=== PATIENT | female | born 1950 | race Caucasian/White ===

== ENCOUNTER 2023-03-16 08:49 | Day surgery (SDC) | payer MEDICARE, SELFPAY ==
[2023-03-06 09:49] VITALS: BMI 30.9
[2023-03-07 12:09] VITALS: BMI 30.7
[2023-03-16 10:05] VITALS: BP 144/96; PULSE 76; RESP 18; TEMP 36.8; O2SAT 98
[2023-03-16] MEDS: LACTATED RINGERS 1,000 ML 150 ML IV CONT (10:27)
--- NOTE | 2023-03-16 10:45 | WPDANESEPPF ---
Anes - Initial Pre Proc Eval Procedure: Operation Date: 03/16/23 11:30 Proposed Procedures p Esophagogastroduodenoscopy - Fox Go MD Date/Time: 03/16/23 10:45 Surgeon: Fox Go MD Pre Op Diagnosis: Gerd Patient Data Age: 72 Gender: F Height: 1.7 m Weight: 89.7 kg Last Vital Signs Temp 36.8 C 03/16/23 10:05 Pulse 76 03/16/23 10:05 Resp 18 03/16/23 10:05 BP 144/96 H 03/16/23 10:05 Pulse Ox 98 03/16/23 10:05 O2 Del Method Room Air 03/16/23 10:05 Allergies Allergy/AdvReac Type Severity Reaction Status Date / Time No Known Allergies Allergy Verified 03/16/23 10:22 Home Medications Medication Instructions Recorded Confirmed Type allopurinol 100 mg tablet 100 mg PO DAILY 03/07/23 03/16/23 History chlorthalidone 25 mg tablet 25 mg PO DAILY 03/07/23 03/16/23 History losartan 100 mg tablet 100 mg PO DAILY 03/07/23 03/16/23 History pantoprazole 20 mg tablet,delayed 20 mg PO DAILY 03/07/23 03/16/23 History release phentermine 30 mg capsule 30 mg PO DAILY 03/07/23 03/16/23 History rosuvastatin 5 mg tablet 5 mg PO DAILY 03/07/23 03/16/23 History Patient hx anesthesia problems: none Family hx anesthesia problems: none Results Review: All pre-operative results and documents have been reviewed as part of the pre-operative evaluation. [facility] Social History Social History Smoking status: Never smoker Alcohol intake: never Substance use: never Substance use type: does not use Living arrangements: with family Spiritual care concerns: No Anes - Eval Final PreProcedure Day of Procedure 03/16/23 10:45 Patient weight: obese Heart: regular rate and rhythm Lungs: clear to auscultation Airway: Mallampati scale class II Neurological: alert and oriented Last oral intake: >/= 8 hours ASA classification: III Emergent: no Anesthetic plan: proceed Anesthesia type and monitoring: general GIVS and standard monitoring Results Review: All pre-operative results and documents have been reviewed as part of the pre-operative evaluation. Informed Consent: The patient's anesthetic plan and its attendant risks and benefits were discussed with the patient/family/POA. Questions were solicited and answers provided to the satisfaction of the patient/family/POA.
--- NOTE | 2023-03-16 11:04 | PM.HPGS ---
History of Present Illness History of Present Illness Consent: Risks, benefits, and alternatives have been discussed and questions answered. Patient agrees to proceed with procedure. Chief complaint: Gerd Narrative: Isabella Parsons is a 72 year old female with longstanding gerd controlled as long as she is taking protonix, had EGD about 10 years ago and was told that had esophageal irritation Review of Systems Constitutional: Constitutional: Denies headache(s) and Denies weakness Eyes: Eyes: Denies blurry vision ENT: Reports Normal hearing present, Denies headache(s) and Denies neck pain Cardiovascular: Cardiovascular: Denies chest pain and Denies dyspnea Respiratory: Respiratory: Denies dyspnea Gastrointestinal: Gastrointestinal: Reports no additional gastrointestinal complaints Genitourinary: Genitourinary: Denies dysuria Musculoskeletal: Musculoskeletal: Denies neck pain Integumentary/Breasts: Skin/Breast: Denies dry skin Neurologic: Reports Normal hearing present, Denies headache(s) and Denies weakness Psychiatric: Psychiatric: Denies anxiety Endocrine: Endocrine: Denies change in body appearance Hematologic/Lymphatic: Hematologic/Lymphatic: Denies easy bleeding Allergic/Immunologic: Allergic/Immunologic: Denies urticaria PMF Past Medical History Medical History (Updated 03/16/23 @ 11:05 by Fox Go MD) GERD (gastroesophageal reflux disease) Social History Social History Smoking status: Never smoker Alcohol intake: never Substance use: never Substance use type: does not use Living arrangements: with family Spiritual care concerns: No Meds Home Medications and Allergies Home Medications Medication Instructions Recorded Confirmed Type allopurinol 100 mg tablet 100 mg PO DAILY 03/07/23 03/16/23 History chlorthalidone 25 mg tablet 25 mg PO DAILY 03/07/23 03/16/23 History losartan 100 mg tablet 100 mg PO DAILY 03/07/23 03/16/23 History pantoprazole 20 mg tablet,delayed 20 mg PO DAILY 03/07/23 03/16/23 History release phentermine 30 mg capsule 30 mg PO DAILY 03/07/23 03/16/23 History rosuvastatin 5 mg tablet 5 mg PO DAILY 03/07/23 03/16/23 History Allergies Allergy/AdvReac Type Severity Reaction Status Date / Time No Known Allergies Allergy Verified 03/16/23 10:22 Vital Signs Vital Signs - 24 hr 03/16/23 10:05 Temperature 98.3 F Pulse Rate 76 Respiratory Rate 18 Blood Pressure 144/96 H Pulse Oximetry 98 Oxygen Delivery Room Air Exam Const: General: comfortable and no acute distress HENMT: Face/Nose/Sinus: Normal nares present Eyes: General: appearance normal, both eyes and all related structures Neck: Neck: no JVD Resp: Auscultation: clear to auscultation bilaterally Cardio: Rate: regular rate Rhythm: regular rhythm GI: Inspection: non-distended GI Palp: Yes Soft to palpation Skin: General skin exam: normal color Neuro: General: gait normal Speech: normal speech Extrem: General: normal to inspection Psych: Mental Status: mental status grossly normal Assessment and Plan Assessment and plan (1) GERD (gastroesophageal reflux disease): Code(s): K21.9 - Gastro-esophageal reflux disease without esophagitis Status: Acute Assessment and Plan: egd with bx already on ppi
[2023-03-16 11:22] VITALS: BP 129/69; PULSE 70; RESP 16; O2SAT 97
--- NOTE | 2023-03-16 11:29 | WPDANESPN ---
Anes - Prog Note Post-Op Date/Time: 03/16/23 11:29 Cardiovascular status: normal Respiratory status: normal Airway patency: baseline Mental status: baseline Post-Op hydration status: normal Vital Signs: Last Vital Signs Temp 36.8 C 03/16/23 10:05 Pulse 70 03/16/23 11:22 Resp 16 03/16/23 11:22 BP 129/69 03/16/23 11:22 Pulse Ox 97 03/16/23 11:22 O2 Del Method Room Air 03/16/23 11:22 Pain Score (VAS): 0 I/O: Intake & Output 03/15/23 03/16/23 03/16/23 23:59 07:59 15:59 Intake Total 100 Balance 100 Patient Feedback: Patient satisfied with anesthetic care.
[2023-03-16 11:32] VITALS: BP 134/77; PULSE 70; RESP 16; O2SAT 99
[2023-03-16 11:42] VITALS: BP 138/81; PULSE 65; RESP 15; O2SAT 100
== END 2023-03-16 11:50 | disposition home or self-care (01) ==
PROVIDERS: PCP Family Medicine; Visit Provider Internal Medicine Gastroenterology
PROC: 0DJ08ZZ Inspection of Upper Intestinal Tract, Via Natural or Artificial Opening Endoscopic (ICD-10-PCS; CPT 43235; principal; 2023-03-16 11:30)
DX: K21.9 Gastro-esophageal reflux disease without esophagitis (principal); K29.70 Gastritis, unspecified, without bleeding; K44.9 Diaphragmatic hernia without obstruction or gangrene
CPT/HCPCS: 43239

== ENCOUNTER 2023-03-16 09:00 | Outpatient (NON) | payer MEDICARE, SELFPAY | END 2023-03-16 09:01 | disposition home or self-care (01) | PROVIDERS: PCP Family Medicine; Visit Provider Internal Medicine Gastroenterology | DX: K21.9 Gastro-esophageal reflux disease without esophagitis (principal) | CPT/HCPCS: 88305 ==

== ENCOUNTER 2024-03-31 16:11 | Emergency (ER) | payer MEDICARE, SELFPAY ==
[2024-03-31 16:32] VITALS: BP 125/75; PULSE 76; RESP 16; TEMP 36.2; O2SAT 100
[2024-03-31 16:35] VITALS: BP 125/75; PULSE 76; RESP 16; TEMP 36.2; O2SAT 100
--- NOTE | 2024-03-31 16:49 | ED.WOUNDLAC ---
HPI - Wound/Laceration General Chief Complaint: Extremity Injury, Upper Stated Complaint: Right Index Finger Injury Time Seen by Provider: 03/31/24 16:50 Source: patient, RN notes reviewed and old records reviewed Mode of arrival: ambulatory Limitations: no limitations History of Present Illness HPI narrative: 73-year-old female presents to the [facility] with a laceration to the right index finger Laceration at the PIP joint index finger right hand. Patient states occurred between 7 8 this morning Patient does report she is up-to-date with her tetanus shot probably 2 years ago. States that she will double check with her primary care provider tomorrow. Treatments prior to arrival: bandage Related Data Home Medications Medication Instructions Recorded Confirmed allopurinol 100 mg tablet 100 mg PO DAILY 03/07/23 03/31/24 chlorthalidone 25 mg tablet 25 mg PO DAILY 03/07/23 03/31/24 losartan 100 mg tablet 100 mg PO DAILY 03/07/23 03/31/24 pantoprazole 20 mg tablet,delayed 20 mg PO DAILY 03/07/23 03/31/24 release rosuvastatin 5 mg tablet 5 mg PO DAILY 03/07/23 03/31/24 spironolactone 50 mg tablet 50 mg PO DAILY 03/31/24 03/31/24 Allergies Allergy/AdvReac Type Severity Reaction Status Date / Time No Known Allergies Allergy Verified 03/31/24 16:39 Review of Systems Review of Systems: All systems reviewed & are unremarkable except as noted in HPI and below Constitutional: Constitutional: Reports no additional constitutional complaints ENT: Reports system reviewed and no additional complaints, except as documented Cardiovascular: Cardiovascular: Reports no additional cardiovascular complaints, Denies chest pain and Denies dyspnea Respiratory: Respiratory: Reports no additional respiratory complaints, Denies chest congestion, Denies cough and Denies dyspnea Gastrointestinal: Gastrointestinal: Reports no additional gastrointestinal complaints, Denies abdominal pain, Denies nausea and Denies vomiting Musculoskeletal: Musculoskeletal: Reports no additional musculoskeletal complaints Integumentary/Breasts: Skin/Breast: Reports as per HPI [facility] Past Medical History Medical History GERD (gastroesophageal reflux disease) Social History Social History Smoking status: Never smoker Alcohol intake: never Substance use: never Substance use type: does not use Living arrangements: with family Spiritual care concerns: No Comments At the time of my signature, I reviewed and agree with the nursing past medical, surgical, social, and family history. There is no relevant family history pertinent to the patient complaint. Exam Const: General: cooperative, healthy appearing, comfortable, no acute distress, well developed, alert and well nourished Nutritional Appearance: well nourished Orientation/consciousness: patient oriented x3 Limitations: no limitations HENMT: Head: normal to inspection Ears: hearing grossly normal bilaterally and external ears normal Face/Nose/Sinus: Normal external nose present, normal facial exam and face symmetric Face and sinus: normal facial exam and face symmetric Eyes: General: appearance normal, both eyes and all related structures Alignment and Position: alignment normal Periorbital: periorbital findings normal Neck: Neck: normal visual inspection, full ROM, no lymphadenopathy and no meningeal signs Chest: Chest palpation & inspection: normal inspection of the chest Resp: Effort & Inspection: normal respiratory effort and able to speak in complete sentences Auscultation: clear to auscultation bilaterally, no crackles, no rales, no rhonchi and no wheezes Cardio: Rate: regular rate Skin: General skin exam: normal color and no rashes or lesions noted Lesions: no lesions Rashes: no rashes Other: 2 cm wound to the dorsal 2nd finger right hand. Bleedings controlled. Has
[2024-03-31] MEDS: LIDOCAINE HCL 1% LOCAL INJ 2 ML AMPUL 4 ML INFILTRATE (17:13)
[2024-03-31] MEDS: WATER FOR IRRIGATION, STERILE 1,000 ML BOTTLE 250 ML IRRIGATION (17:13)
== END 2024-03-31 17:50 | disposition home or self-care (01) ==
PROVIDERS: Emergency Provider Nurse Practitioner; PCP Family Medicine
DX: S61.210A Laceration without foreign body of right index finger without damage to nail, initial encounter (principal); X58.XXXA Exposure to other specified factors, initial encounter; K21.9 Gastro-esophageal reflux disease without esophagitis
CPT/HCPCS: 12001; 99212; G0463; J2003

== ENCOUNTER 2024-10-31 13:57 | Outpatient (CLI) | payer MEDICARE, SELFPAY ==
--- NOTE | ~2024-10-31 | MM_ITS ---
EXAMINATION: MM screening robin BI w robe HISTORY: Screening TECHNIQUE: Craniocaudal and mediolateral oblique 3-D tomosynthesis images were obtained and synthetic 2-D images were generated. CAD analysis was submitted and interpreted. COMPARISON: Comparison to multiple prior studies sequentially, with oldest reviewed study dated 11/27. BREAST PARENCHYMAL COMPOSITION: Dense: The breasts are heterogeneously dense, which may obscure small masses FINDINGS: There is no evidence of suspicious mass, calcification, or architectural distortion to sugg est malignancy in either breast. There has been no suspicious interval change. IMPRESSION: 1. No mammographic evidence of malignancy. 2. Recommend routine screening mammography in one year. BI-RADS Category 1: Negative Reviewed, dictated and finalized at location B.
--- OUTSIDE RECORDS SUMMARY | 2024-10-31 14:00 | XMS_ITS | CONTINUITY OF CARE DOCUMENT ---
Author Name senia conn Address Unknown Organization [facility] Address [address] [place] [address] [address] [place] [address] Phone [phone] Care Team Providers Care Cathead Operator Name Role Phone Ezra Mckeon MD Unavailable [phone] DARIUS TAPIA MD Unavailable DARIUS TAPIA MD Unavailable PROBLEMS Condition Status Date Provider Notes Cardiology examination active Ezra Mckeon MD HTN essential active Ezra Mckeon MD Hyperlipidemia active Ezra Mckeon MD Bradycardia active Ezra Mckeon MD Abnormal routine stress active Ezra Mckeon MD ENCOUNTERS Date Type Provider Location Encounter Diag nosis 2 - 2 In-person encounter Office Visit Ezra Mckeon MD [facility] 8 - 8 In-person encounter Office Visit Ezra Mckeon MD [facility] 5 - 5 In-person encounter Office Visit Ezra Mckeon MD [facility] Abnormal routine stress 8 - 8 In-person encounter Office Visit Ezra Mckeon MD [facility] Cardiology examinationHTN essentialHyperlipidemiaBradycardia VITAL SIGNS Date Observation Value Provider Body Mass Index (Ratio) 26.78 kg/m2 Skyla Mckeon MD blood pressure, cuff size regular Ke rri Gruenenfelder blood pressure, diastolic 100 mm[Hg] Ke rri Gruenenfelder blood pressure, systolic 176 mm[Hg] Jarad Ruffinelder oxygen saturation, oximetry 98 % Peri Ruffinelder respiratory rate E&M 12 /min Peri mayeselder pulse rate 87 /min Peri Olson er weight E&M 171 [lb_av] Peri Olson height E&M 67 [in_i] Peri Wesley Body Mass Index (Ratio) 30.85 kg/m2 Skyla Mckeon MD blood pressure, cuff size regular Ja rret blood pressure, diastolic 84 mm[Hg] Ja rret blood pressure, systolic 161 mm[Hg] Lashawn ret pulse rate 68 /min Reese oxygen saturation, oximetry 98 % Reese respiratory rate E&M 14 /min Reese weight E&M 197 [lb_av] Reese y height E&M 67 [in_i] Reese y Body Mass Index (Ratio) 31.63 kg/m2 Skyla Mckeon MD blood pressure, cuff size regular Ja rr blood pressure, diastolic 90 mm[Hg] Ja rret blood pressure, systolic 178 mm[Hg] Jar ret pulse rate 68 /min Reese y respiratory rate E&M 12 /min Reese oxygen saturation, oximetry 98 % Reese weight E&M 202 [lb_av] Reese Tolbert y height E&M 67 [in_i] Reese Tolbert y weight E&M 240 [lb_av] Mag waller Body Mass Index (Ratio) 31.95 kg/m2 Skyla Mckeon MD respiratory rate E&M 17 /min Ольга richards blood pressure, diastolic 92 mm[Hg] Ana M Bhakta blood pressure, systolic 168 mm[Hg] Any lolita Bhakta pulse rate 53 /min Ольга Bhakta blood pressure, cuff size large An mirna Bhakta oxygen saturation, oximetry 98 % Ольга Bhakta weight E&M 204 [lb_av] Ольга Bhakta height E&M 67 [in_i] Ольга Bhakta ALLERGIES No Known Drug Allergies RESULTS Date Observation Value Provider Reference Range Interpretation Location 2 lipoprotein, beta, serum, point, quantitative, calculated 61 mg/dL [facility] 0-99 2 HDL cholesterol, serum 59 mg/dL [facility] >39 2 triglyceride, serum, random 72 mg/dL [facility] 0-149 2 cholesterol, serum 134 mg/dL [facility] 437-200 6020/04/0 2 alanine aminotransferase (SGPT), serum 19 1/L [facility] 0-32 2 aspartate aminotransferase (SGOT), serum 19 1/L [facility] 0-40 2 alkaline phosphatase, serum 85 1/L [facility] 44-121 2 bilirubin, serum, total 0.4 mg/dL [facility] 0.0-1.2 2 albumin/globulin ratio, serum 1.7 [facility] 1.2-2.2 2 globulin, serum 2.6 [facility] 1.5-4.5 2 albumin, serum 4.5 g/dL [facility] 3.8-4.8 2 protein, total, serum 7.1 g/dL [facility] 6.0-8.5 2 calcium, serum 9.6 mg/dL [facility] 8.7-10.3 2 carbon dioxide, venous blood 25 mmol/L [facility] 20-29 2 chloride, serum 100 mmol/L [facility] 96-106 2 potassium, serum 3.8 mmol/L [facility] 3.5-5.2 2 sodium, serum 139 mmol/L [facility] 288-399 9612/04/0 2 urea nitrogen/creatinine ratio, serum 14 [facility] 12-28 2 creatinine, serum 1.17 mg/dL [facility] 0.57-1.00 High 2 urea nitrogen, blood 16 mg/dL [facility] 8-27 2 blood glucose, random 120 mg/dL [facility] 70-99 High HISTORY OF MEDICATION USE Medication Status Instructions Dates Provider Indications Com ments losartan 100 mg tablet active TAKE 1 TABLET BY MOUTH ONCE A DAY 7 Lissett Coto amlodipine 5 mg tablet active TAKE 1 TABLET BY MOUTH EVERY DAY 8 Ezra Mckeon MD chlorthalidone 25 mg tablet active TAKE 1 TABLET BY MOUTH ONCE A DAY 5 Lissett Coto losartan 100 mg tablet completed Take 1 tablet once a day 5 - 7 Nereida Parham metoprolol tartrate 25 mg tablet completed - 8 Ezra Mckeon MD rosuvastatin 5 mg tablet active Ezra Mckeon MD losartan-hydrochlo rothiazide 50-12.5 mg tablet completed - 5 Ezra Mckeon MD pantoprazole 20 mg tablet,delayed release (DR/EC) active Ezra Mckeon MD allopurinol 100 mg tablet active Ezra Mckeon MD SOCIAL HISTORY Date Observation Value Provider drug use no Ezra Mckeon MD alcohol use no Ezra Mckeon MD smoking status Never smoker Ezra Mckeon MD drug use no Ezra Mckeon MD alcohol use no Ezra Mckeon MD smoking status Never smoker Ezra Mckeon MD smoking status Never smoker Ezra Mckeon MD social history E&M S moking History: Aguilar ladd has never smoked. Ezra Mckeon MD social history reviewed E&M reviewed - no changes required Ezra Mckeon MD drug use no Ezra Mckeon MD alcohol use no Ezra Mckeon MD social history reviewed E&M reviewed - no changes required Ezra Mckeon MD social history E&M S moking History: Aguilar ladd has never smoked. Ezra Mckeon MD smoking status Never smoker Ольга Bhakta INSURANCE PROVIDERS Payer name Policy type / Coverage type Mchenry red green party ID AARP MEDICARE ADVANTAGE HMO-POS HMO [id number] ADVANCE DIRECTIVES Name Date DISCUSSED - NO DECISION MADE TREATMENT PLAN Date Name Performer [id number],B,Off the lopre ssor Ezra Mckeon MD [id number],C,W ill increase losartan and add Chlorthalidone 25mg once a day Ezra Mckeon MD [id number],C,H er BP has been high since we last saw her. Her HR has gone up since we stopped the lopressor. SHe had a stress test that showed normal HR and had ST depression consistent with ischemia. SHe has had this exact issue before on a stress test and underwent a cath. No sig. CAD. Ezra Mckeon MD [id number],C,on statin Leland Mckeon MD [id number],C,Will check a 48 hr holter Ezra Mckeon MD [id number],C,W ill have her stop BB B P today: 168/92 Her updated medication list for this problem includes: Losartan-hydrochlorothiazide 50-12.5 Mg Tablet (Losartan-hydrochlorothiazide) Ezra Mckeon MD Cardiology Ezra Mckeno MD Cardiology:stable, no limitation s Ezra Mckeon MD Cardiology:This visi t has been a part of the consistent, comprehensive, and ongoing management of the chronic medical condition(s) listed above for the patient. T he patient is on a statin for pimary prevention and management of cardiovascular disease. H er updated medication list for this problem includes: Rosuvastatin 5 Mg Tablet (Rosuvastatin) Ezra Mckeon MD Cardiology:Likely wh ite coat htn S tates her BP is well controlled at home H er updated medication list for this problem includes: Amlodipine 5 Mg Tablet (Amlodipine) ..... Take 1 tablet by mouth every day Chlorthalidone 25 Mg Tablet (Chlorthalidone) ..... Take 1 tablet by mouth once a day Losartan 100 Mg Tablet (Losartan) ..... Take 1 tablet once a day BP today: 176/100 P rior BP: 161/84 (08/18/2023) Labs Reviewed: C reat: 1.17 (09/12/2023) C hol: 134 (09/12/2023) HDL: 59 (09/12/2023) LDL: 61 (09/12/2023) T (09/12/2023) Ezra Mckeon MD Cardiology Ezra Mckeon MD Cardiology Ezra Mckeon MD Cardiology:check Lip id Panel H er updated medication list for this problem includes: Rosuvastatin 5 Mg Tablet (Rosuvastatin) Ezra Mckeon MD Cardiology:Add amlod ipine 5mg once daily as her BP runs high at home BP today: 161/84 P rior BP: 178/90 (02/24/2023) Her updated medication list for this problem includes: Amlodipine 5 Mg Tablet (Amlodipine) ..... Take 1 tablet by mouth every day Chlorthalidone 25 Mg Tablet (Chlorthalidone) ..... Take 1 tablet by mouth once a day Losartan 100 Mg Tablet (Losartan) ..... Take 1 tablet once a day Ezra Mckeon MD Cardiology:Off the lopressor Leland Mckeon MD Cardiology:Will incr ease losartan and add Chlorthalidone 25mg once a day Ezra Mckeon MD Cardiology:Her BP alvarez s been high since we last saw her. Her HR has gone up since we stopped the lopressor. SHe had a stress test that showed normal HR and had ST depression consistent with ischemia. SHe has had this exact issue before on a stress test and underwent a cath. No sig. CAD. Ezra Mckeon MD Cardiology:on statin Ezra corbett MD Cardiology:Will check a 48 hr ho lter Ezra Mckeon MD Cardiology:Will have her stop BB B P today: 168/92 Her updated medication list for this problem includes: Losartan-hydrochlorothiazide 50-12.5 Mg Tablet (Losartan-hydrochlorothiazide) Ezra Mckeon MD Date Name COMPREHENSIVE METABO LIC PANEL, W/EGFR LIPID PANEL BASIC METABOLIC PANE L W/EGFR Complete Echo Stress Routine Holter Monitor 48 hr HISTORY OF PROCEDURES Procedure Date Procedure Name Provider Procedure Notes S tatus Complex e/m visit add on Ezra Mckeon MD completed EKG Ezra Mckeon MD completed
--- OUTSIDE RECORDS SUMMARY | 2024-10-31 14:00 | XMS_ITS | Referral Summary ---
Author Organization [facility] Address [address] [place] [address] Care Team Providers Care Shank Faker Name Role Phone Mike Valdez MD Primary Care Provider [phone] Allergies No known active allergies Medications magnesium oxide (MAG-OX) 400 mg (241.3 mg elemental magnesium) tabletIndication s:hypomagnesemia Take 400 mg by mouth daily Active famotidine (PEPCID) 20 mg tablet Take 20 mg by mouth daily Active rosuvastatin (CRESTOR) 5 mg tablet Take 2.5 mg by mouth daily Active aspirin 81 mg enteric coated tablet Take 81 mg by mouth daily Active metoprolol XL (TOPROL-XL) 25 mg extended release tablet Take 25 mg by mouth daily Active losartan-hydroCH LOROthiazide (HYZAAR) 50-12.5 mg per tablet Take 1 tablet by mouth daily Active pantoprazole DR (PROTONIX) 40 mg EC tablet Take 40 mg by mouth daily Active Active Problems Problem Noted Date Diagnosed Date Nonsustained ventricular tachycardia 07/31/2019 Diastolic dysfunction 07/31/2019 Essential hypertension 07/31/2019 Palpitations 07/31/2019 Social History Tobacco Use Types Packs/Day Years Used Date Smoking Tobacco: Never Smokeless Tobacco: Never Alcohol Use Standard Drinks/Week Comments Not Currently 0 (1 standard drink = 0.6 oz pur e alcohol) Personal Safety Answer Date Recorded Getting School Help Needed Not on file 08/12 Comments Unknown Sex and Gender Information Value Date Recorded Sex Assigned at Not on file 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 Gender Identity Not on file Sexual Orientation Not on file Last Filed Vital Signs Vital Sign Reading Time Taken Comments Blood Pressure 134/82 12/10/2020 11:14 AM CDT Pulse 62 12/10/2020 11:14 AM CDT Temperature 36.6 C (97.8 F) 09/22/2017 6:06 AM CDT Respiratory Rate - - Oxygen Saturation 98% 12/10/2020 11:14 AM CDT Inhaled Oxygen Concentration - - Weight 86.6 kg (191 lb) 12/10/2020 11:14 AM CDT Height 170.2 cm (5' 7 ) 12/10/2020 11:14 AM CDT Body Mass Index 29.91 12/10/2020 11:14 AM CDT Plan of Treatment Not on file Insurance MEDICARE [employer] SENIOR [facility] MEDICARE AET[employer] SENIOR SUPPLEMENT Advance Directives For more information, please contact: [phone] Documents on File Type Date Recorded Patient Stakes Player Expl anation ADVANCE DIRECTIVE 11/29/2017 12:00 AM MARIA LUZ Kinney OF [employer] MACHINE OPERATOR FINANCIAL/MEDICAL Care Teams Shank Faker Relationship Specialty Start Date End Date Mike Valdez MD [address] [place] [address] PCP - General 08/06/20
--- OUTSIDE RECORDS SUMMARY | 2024-10-31 14:00 | XMS_ITS | Clinical Summary ---
Author Organization [facility] Address [address] [place] [address] Care Team Providers Care Electronic Equipment Repairer Name Role Phone Mike Valdez MD Primary Care Provider Allergies No known active allergies Medications magnesium [...] dysfunction 07/31/2019 Essential hypertension 07/31/2019 Palpitations 07/31/2019 Medical History Medical History Date Comments Coronary artery disease Hypertension Family History Medical History Relation Name Comments No Known Problems Brother Stent Father Heart disease Mother No Known Problems Sister Relation Name Status Comments Brother Alive Father Mother Sister Alive Social History Tobacco Use Types Packs/Day Years [...] on file 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 Gender Identity Not on file Sexual Orientation Not on file Obstetrics History Last Filed Vital Signs Vital Sign Reading [...] of Treatment Not on file Insurance MEDICARE [facility] SENIOR SUPPLEMENT MEDICARE [employer] SENIOR SUPPLEMENT Advance Directives For more information, please contact: [phone] Documents on File Type Date Recorded Patient Comb Machine Operator Expl anation ADVANCE DIRECTIVE 11/29/2017 12:00 AM MARIA LUZ R OF NURSE STAFF [facility] FINANCIAL/MEDICAL Care Teams Electronic Equipment Repairer Relationship Specialty Start Date End Date Mike Valdez MD [address] [facility] [place] [address] PCP - General 08/06/20
--- OUTSIDE RECORDS SUMMARY | 2024-10-31 14:00 | XMS_ITS | Data Portability ---
Author Organization [place] [employer], Main Office Address [address] [place] [address] Care Team Providers Care Apprenticeship Training Representative Name Role Phone MIKE VALDEZ Primary Care Provider Assessment Encounter Date Assessment Date Assessment LastModified by Organization Details LastModified Time 04/08/2024 04/08/2024 D/w pt about her findings and further options for her. Pt wants to wait for few more days to get her stitches out (as the center part is still not completely healed yet). Routine wound care explained in detail. F/u as directed. [email or web address] Not available 04/08/2024 14:49:41 04/17/2024 04/17/2024 D/w pt about her findings and further options for her. Verbal consent taken. Pt did well with it, no problems. Routine wound care explained in detail. F/u as directed. [email or web address] Not available 04/17/2024 14:33:45 05/28/2024 05/28/2024 74 yo F with - WT LOSS PROGRAM - MICROSCOPIC HEMATURIA, resolved - CKD III, new - HLD - HTN - GERD - GOUT - LUMBAR DISC PROLAPSE - CHRONIC NECK & LOW BACK PAIN - DDD C & L SPINE - CERVICAL & LUMBAR SPONDYLOSIS - POLYARTHROPATHY - OSTEOPENIA - OVERWEIGHT - H/O OBESITY I - H/O ELEVATED LFTs - H/O HYPOMAGNESEMIA - H/O B/L CATARACT - H/O MICROSCOPIC HEMATURIA Annual labs: 02/26/24. Annual labs: 01/11/23. MRI L-spine wo: 11/05/21. X-ray C & L spine: 08/13/21. Annual labs, ANABELL: 08/12/21. Labs by cardio: 08/06/20. Annual labs: 06/19/20. Wt: 197(06/30/20) - 191(07/28/20) - 189(08/25/20) - 188(10/19/20) - 188(12/15/20) [Stop] Wt: 204(08/26/21) - 201(09/27/21) - 197(10/27/21) - 194(12/01/21) - 199(02/28/22) - 197(04/26/22) [Stop] Wt: 198(01/25/23) - 196(02/27/23) - 196(02/27/23) - 190(03/30/23) - 191(08/09/23) - 188(10/19/23) - 184(12/28/23) - 170(02/26/24) - 162(03/27/24) - 162(05/28/24) D/w pt in detail about her conditions, recent labs & imagines and further plan of care. Answered all questions and concerns for the pt. All meds verified with pt. Meds as directed. BP diary education given and call us if any concerns. Diet and exercise explained in detail. Cont f/u with GI as per schedule. Cont f/u with Pain clinic as per schedule. Cont f/u with Ophtho as per schedule. Cont f/u with Cardio at [facility] as per schedule. Pt has done PT in the past. Offered to refer to Nephro; but pt declined. Offered to refer to Spine surgeon; but pt declined. Saxenda, Wegovy, Zepbound were too costly for pt. HM: WWE - 09/02, normal as per pt. Cont f/u with Gyne as per schedule. Mammo - 09/22/23, normal. EGD - 03/16/23, gastritis ++. Cont f/u with GI as per schedule. Colonoscopy - 10 yrs ago, normal as per pt. Cologuard, 10/28/23 - neg. DEXA - 10/27/23, normal. Flu - 03/27/24. Tdap - 06/18/20. Pneumo - 06/30/20. Shingrix - At pharmacy/HD. F/u in 2 months. BMP in 09/03. Annual labs in 03/06. [email or web address] Not available 05/28/2024 09:31:28 07/25/2024 07/25/2024 74 yo F with - WT LOSS PROGRAM - MICROSCOPIC HEMATURIA, resolved - CKD III, new - HLD - HTN - GERD - GOUT - LUMBAR DISC PROLAPSE - CHRONIC NECK & LOW BACK PAIN - DDD C & L SPINE - CERVICAL & LUMBAR SPONDYLOSIS - POLYARTHROPATHY - OSTEOPENIA - OVERWEIGHT - H/O OBESITY I - H/O ELEVATED LFTs - H/O HYPOMAGNESEMIA - H/O B/L CATARACT - H/O MICROSCOPIC HEMATURIA Annual labs: 02/26/24. Annual labs: 01/11/23. MRI L-spine wo: 11/05/21. X-ray C & L spine: 08/13/21. Annual labs, ANABELL: 08/12/21. Labs by cardio: 08/06/20. Annual labs: 06/19/20. Wt: 197(06/30/20) - 191(07/28/20) - 189(08/25/20) - 188(10/19/20) - 188(12/15/20) [Stop] Wt: 204(08/26/21) - 201(09/27/21) - 197(10/27/21) - 194(12/01/21) - 199(02/28/22) - 197(04/26/22) [Stop] Wt: 198(01/25/23) - 196(02/27/23) - 196(02/27/23) - 190(03/30/23) - 191(08/09/23) - 188(10/19/23) - 184(12/28/23) - 170(02/26/24) - 162(03/27/24) - 162(05/28/24) - 165(07/25/24) [Stop] D/w pt in detail about her conditions, recent labs & imagines and further plan of care. Answered all questions and concerns for the pt. All meds verified with pt. Meds as directed. BP diary education given and call us if any concerns. Diet and exercise explained in detail. Cont f/u with GI as per schedule. Cont f/u with Pain clinic as per schedule. Cont f/u with Ophtho as per schedule. Cont f/u with Cardio at [facility] as per schedule. Pt has done PT in the past. Offered to refer to Nephro; but pt declined. Offered to refer to Spine surgeon; but pt declined. Saxenda, Wegovy, Zepbound were too costly for pt. HM: WWE - 09/02, normal as per pt. Cont f/u with Gyne as per schedule. Mammo - 09/22/23, normal. EGD - 03/16/23, gastritis ++. Cont f/u with GI as per schedule. Colonoscopy - 10 yrs ago, normal as per pt. Cologuard, 10/28/23 - neg. DEXA - 10/27/23, normal. Flu - 03/27/24. Tdap - 06/18/20. Pneumo - 06/30/20. Shingrix - At pharmacy/HD. F/u in 2 months. BMP in 09/03. Annual labs in 03/06. Not available 07/25/2024 09:13:22 09/30/2024 09/30/2024 74 yo F with - CKD III, stable - HLD - HTN - GERD - GOUT - LUMBAR DISC PROLAPSE - CHRONIC NECK & LOW BACK PAIN - DDD C & L SPINE - CERVICAL & LUMBAR SPONDYLOSIS - POLYARTHROPATHY - OSTEOPENIA - OVERWEIGHT - H/O OBESITY I - H/O ELEVATED LFTs - H/O HYPOMAGNESEMIA - H/O B/L CATARACT - H/O MICROSCOPIC HEMATURIA Annual labs: 02/26/24. Annual labs: 01/11/23. MRI L-spine wo: 11/05/21. X-ray C & L spine: 08/13/21. Annual labs, ANABELL: 08/12/21. Labs by cardio: 08/06/20. Annual labs: 06/19/20. Wt: 197(06/30/20) - 191(07/28/20) - 189(08/25/20) - 188(10/19/20) - 188(12/15/20) [Stop] Wt: 204(08/26/21) - 201(09/27/21) - 197(10/27/21) - 194(12/01/21) - 199(02/28/22) - 197(04/26/22) [Stop] Wt: 198(01/25/23) - 196(02/27/23) - 196(02/27/23) - 190(03/30/23) - 191(08/09/23) - 188(10/19/23) - 184(12/28/23) - 170(02/26/24) - 162(03/27/24) - 162(05/28/24) - 165(07/25/24) [Stop] D/w pt in detail about her conditions, recent labs & imagines and further plan of care. Answered all questions and concerns for the pt. All meds verified with pt. Meds as directed. BP diary education given and call us if any concerns. Diet and exercise explained in detail. Cont f/u with GI as per schedule. Cont f/u with Pain clinic as per schedule. Cont f/u with Ophtho as per schedule. Cont f/u with Cardio at [facility] as per schedule. Pt has done PT in the past. Offered to refer to Nephro; but pt declined. Offered to refer to Spine surgeon; but pt declined. Saxenda, Wegovy, Zepbound, Farxiga were too costly for pt. HM: WWE - 09/02, normal as per pt. Cont f/u with Gyne as per schedule. Mammo - 09/22/23, normal. Ordered. EGD - 03/16/23, gastritis ++. Cont f/u with GI as per schedule. Colonoscopy - 10 yrs ago, normal as per pt. Cologuard, 10/28/23 - neg. DEXA - 10/27/23, normal. Flu - 03/27/24. Tdap - 06/18/20. Pneumo - 06/30/20. Shingrix - At pharmacy/HD. F/u in 5 months. Annual labs in 03/06. [email or web address] Not available 09/30/2024 09:18:06 Plan of Treatment Reminders Order Date Submit Date Provider Last Modified By Organization Details Last Modified Time Details Appointments Physical/ Annual Wellness 30 2024 08:15A Javier Valdez MD Not available Not available Not available Lab BMP, serum or plasma 2023 025 [email or web address] [facility] (Lab), [address] [place], [address], 09/12/2024 18:03:51 Referral None recorded. Procedures None recorded. Surgeries None recorded. Imaging MAMMO, screening , bilateral 2024 025 [email or web address] [facility], [address] Sh[address]umann, [facility] [address], [place], [address], 10/16/2024 16:41:58 Medication Orders allopurin ol 100 mg tablet 2024 025 [facility] [id number], [place], [address], 09/30/2024 09:13:39 meloxicam 7.5 mg tablet 2024 025 [facility] [address], [place], [address], 09/30/2024 09:13:42 Jardiance 25 mg tablet 2024 025 [facility] [address], [place], [address], 09/30/2024 09:13:39 rosuvasta tin 5 mg tablet 2024 025 [facility] [address], [address], 09/30/2024 09:13:42 spironola ctone 50 mg tablet 2024 025 [facility] [address], [place], [address], 09/30/2024 09:13:39 cyclobenz aprine 10 mg tablet 2024 025 [facility] [address], [place], [address], 09/30/2024 09:13:40 pantopraz ole 20 mg tablet,de layed release 2024 025 [facility] [address] In [facility], [address] [facility], [place], [address], 09/30/2024 09:13:40 allopurin ol 100 mg tablet 2024 025 [facility] [address] In [facility], [address] [facility], [place], [address], 07/25/2024 09:15:53 meloxicam 7.5 mg tablet 2024 025 [facility] [address] In [facility], [address] [facility], [place], [address], 07/25/2024 09:15:55 Farxiga 10 mg tablet 2024 025 [facility] [address] In [facility], [address] [facility], [place], [address], 07/25/2024 09:15:55 rosuvasta tin 5 mg tablet 2024 025 [facility] [address] In [facility], [address] [facility], [place], [address], 07/25/2024 09:15:55 spironola ctone 50 mg tablet 2024 025 [facility] [address] In [facility], [address] [facility], [place], [address], 07/25/2024 09:15:54 cyclobenz aprine 10 mg tablet 2024 025 [facility] [address] In [facility], [address] [facility], [place], [address], 07/25/2024 09:15:54 pantopraz ole 20 mg tablet,de layed release 2024 025 [facility] [address], [address], 07/25/2024 09:15:54 scopolami ne 1 mg over 3 days transderm al patch 2024 025 [facility] [address], [address], 07/25/2024 09:15:55 ondansetr on 4 mg disintegr ating tablet 2024 025 [facility] [address], [address], 07/25/2024 09:15:55 allopurin ol 100 mg tablet 2023 024 [facility] [address], [address], 05/28/2024 09:12:18 meloxicam 7.5 mg tablet 2023 024 [facility] [address], [address], 05/28/2024 09:12:15 Farxiga 10 mg tablet 2023 024 [facility] [address], [address], 05/28/2024 09:12:15 rosuvasta tin 5 mg tablet 2023 024 [facility] [address], [address], 05/28/2024 09:12:16 phentermi ne 37.5 mg tablet 2023 024 [facility] [address] [address] [place], [address], 05/28/2024 09:12:21 spironola ctone 50 mg tablet 2023 024 [facility] [address] In [facility], [address], [place], [address], 05/28/2024 09:12:17 cyclobenz aprine 10 mg tablet 2023 024 [facility] [address] In [facility], [address] , [place], [address], 05/28/2024 09:12:17 pantopraz ole 20 mg tablet,de layed release 2023 024 [facility] [address] In [facility], [address], [place], [address], 05/28/2024 09:12:16 Patient TargetsNo targets recorded. Patient Instructions Encounter Date Encounter Id Patient Instructions Last Modified By Organization Details Last Modified Time 04/08/2024 [id number] cuts closed with stitches: care instructions [email or web address] Not available 04/08/2024 14:48:51 04/17/2024 [id number] cuts closed with stitches: care instructions [email or web address] Not available 04/17/2024 14:28:50 Reason for Referral None Reported. Results Created Date Observation Date Name Description Value Unit Range Abnormal Flag Note LastModifiedBy Organization Detail LastModifiedTime Result Notes None recorded. 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 Active 2021 Not Available [facility] 3 02:33:16 Gouty arthropath y 422987007 Active 2021 Not Available [facility] 3 02:33:16 Hypomagnes emia 540689551 Active 2020 Not Available [facility] 3 02:33:16 Lumbar spondylosi s 048093419 Active 2021 Not Available [facility] 3 02:33:16 Screening mammograph y Active 2021 Not Available [facility] 3 02:33:16 Degenerati on of lumbar interverte bral disc 42573390 Active 2021 Not Available [facility] 3 02:33:16 Gastroesop hageal reflux disease without esophagiti s 493053254 Active 2020 Not Available [facility] 3 02:33:16 Adult health examinatio n Active 2021 Not Available [facility] 3 02:33:16 Chronic low back pain 320769467 Active 2021 Not Available [facility] 3 02:33:16 Osteopenia 980277912 Active 2020 Not Available [facility] 3 02:33:16 Polyarthro bill 13922902 Active 2021 Not Available [facility] 3 02:33:17 Hypertensi ve disorder 21484596 Active 2020 Not Available [facility] 3 02:33:17 Cervical spondylosi s 943017706 Active 2021 Not Available [facility] 3 02:33:17 Hyperlipid emia 52454062 Active 2020 Not Available [facility] 3 02:33:17 Liver enzymes level above reference range 971758295 Active 2020 Not Available [facility] 3 02:33:17 Administra tion of influenza vaccine Active 2021 Not Available [facility] 3 02:33:17 Bilateral cataracts 88650867 Active 2022 Mike Valdez MD [address] [facility], [facility] [address], [place], [address] , [facility] 3 12:18:47 Bradycardi a 00785406 Active 2022 Mike Valdez MD [address], [place], [address] , [facility] 3 11:33:16 Microscopi c hematuria 712844577 Active 2022 Mike Valdez MD [address], [place], [address] , [facility] 3 12:32:46 Gout 41303279 Active 2022 Mike Valdez MD [address], [place], [address] , [facility] 3 11:15:44 Loss of hair 205047523 Active 2023 Mike Valdez MD [address], [place], [address] , [facility] 4 09:24:01 Chronic kidney disease stage 3 538337599 Active 2023 Mike Valdez MD [address], [place], [address] , [facility] 4 09:12:28 Laceration of right index finger 0184353259089 9103 Active 2023 Mike Valdez MD [address], [place], [address] , [facility] 4 14:48:32 Motion sickness 41414818 Active 2024 Mike Valdez MD [address], [place], [address] , [facility] 5 09:12:25 Overweight 629017197 Active 2024 Mike Valdez MD [address], [place], [address] , [facility] 5 09:18:27 Problem Notes None recorded. Procedures Surgical History Date Name Laterality Status Provider Name and Address Organization Details Recorded Time Medicare Wellness CPT Code, subsequent completed September [facility] 10/18/2023 14:44:29 Hernia Surgery completed Not Available [facility] 08/10/2022 02:30:41 Imaging Results None recorded. Procedure Notes None recorded. Medical Equipment None Reported. Allergies No known drug allergies Medications Name Sig Start Date Stop Date Status Note LastModified by Organization Details LastModified Time cyclobenzap rine 10 mg tablet TAKE 1 TABLET BY MOUTH EVERY 12 HOURS NEEDED FOR 30 DAYS 2024 active Not Available Not Available Not Avai lable trazodone 50 mg tablet TAKE 1 TABLET BY MOUTH EVERY DAY active Not Available Not Available No t Available metoprolol succinate ER 50 mg tablet,exte nded release 24 hr TAKE 1 TABLET BY MOUTH EVERY DAY AT NIGHT 10/19 completed Not Available Not Available Not Available valacyclovi r 1 gram tablet Take 1 tablet every 12 hours by oral route for 5 days. active Not Available Not Available No t Available hydrocodone 5 mg-acetamin ophen 325 mg tablet TAKE ONE TABLET BY MOUTH EVERY 4 TO 6 HOURS NEEDED FOR PAIN DO NOT WORK OR DRIVE active Not Available Not Available No t Available flurbiprofe n 0.03 % eye drops INSTILL 1 DROP INTO SURGICAL EYE THREE TIMES PER DAY STARTING AFTER SURGERY, CONTINUE FOR 3 WEEKS 12/24 completed Not Available Not Available Not Available phentermine 15 mg capsule TAKE 1 CAPSULE BY MOUTH EVERY DAY IN THE MORNING 02/27 completed Not Available Not Available Not Available phentermine 37.5 mg tablet TAKE 1 TABLET BY MOUTH EVERY DAY IN THE MORNING active Not Available Not Available No t Available chlorthalid one 25 mg tablet TAKE 1 TABLET BY MOUTH ONCE A DAY active Not Available Not Available No t Available amlodipine 5 mg tablet TAKE 1 TABLET BY MOUTH EVERY DAY active Not Available Not Available No t Available allopurinol 100 mg tablet TAKE 1 TABLET BY MOUTH EVERY DAY DIRECTED 2024 active Not Available Not Available Not Avai lable spironolact one 25 mg tablet TAKE 1 TABLET BY MOUTH EVERY DAY DIRECTED 12/27 completed Not Available Not Available Not Available phentermine 30 mg capsule TAKE 1 CAPSULE BY MOUTH EVERY DAY IN THE MORNING active Not Available Not Available No t Available pantoprazol e 20 mg tablet,sam yed release TAKE 1 TABLET BY MOUTH EVERY DAY IN THE MORNING 2024 active Not Available Not Available Not Avai lable meloxicam 7.5 mg tablet TAKE 1 TABLET BY MOUTH EVERY DAY NEEDED WITH FOOD. 2024 active Not Available Not Available Not Avai lable prednisolon e acetate 1 % eye drops,suspe nsion PLEASE SEE ATTACHED FOR DETAILED DIRECTION S 02/27 completed Not Available Not Available Not Available losartan 25 mg tablet TAKE 1 TABLET BY MOUTH EVERY DAY IN THE MORNING 12/15 completed Not Available Not Available Not Available gabapentin 300 mg capsule TAKE 1 CAPSULE BY MOUTH TWICE A DAY DIRECTED active Not Available Not Available No t Available diclofenac sodium 75 mg tablet,sam yed release Take 1 tablet every 12 hours by oral route as needed for 15 days. active Not Available Not Available No t Available hydrochloro thiazide 25 mg tablet TAKE 1 TABLET BY MOUTH EVERY DAY IN THE MORNING 12/15 completed Not Available Not Available Not Available scopolamine 1 mg over 3 days transdermal patch APPLY 1 PATCH EVERY 72 HOURS BY TRANSDERM AL ROUTE DIRECTED FOR 21 DAYS. active Not Available Not Available No t Available losartan 50 mg-hydrochl orothiazide 12.5 mg tablet TAKE 1 TABLET BY MOUTH EVERY DAY IN THE MORNING FOR 90 DAYS (DOSE CHANGE FROM LOSARTAN- HCTZ 25-25MG) 02/27 completed Not Available Not Available Not Available ondansetron 4 mg disintegrat ing tablet DISSOLVE 1 TABLET ON TONGUE EVERY 6 TO 8 HOURS NEEDED FOR 5 DAYS active Not Available Not Available No t Available losartan 100 mg tablet TAKE 1 TABLET BY MOUTH ONCE A DAY active Not Available Not Available No t Available fluoxetine 20 mg capsule TAKE ONE CAPSULE BY MOUTH EVERY MORNING active Not Available Not Available No t Available spironolact one 50 mg tablet Take 1 tablet every day by oral route as directed for 90 days. 2024 active Not Available Not Available Not Avai lable Adult Low Dose Aspirin 81 mg tablet,sam yed release Take 1 tablet every day by oral route with meals for 90 days. 2023 active Not Available Not Available Not Avai lable moxifloxaci n 0.5 % eye drops PLEASE SEE ATTACHED FOR DETAILED DIRECTION S 02/27 completed Not Available Not Available Not Available rosuvastati n 5 mg tablet TAKE 1 TABLET BY MOUTH EVERYDAY AT BEDTIME 2024 active Not Available Not Available Not Avai lable metoprolol tartrate 25 mg tablet TAKE ONE-HALF TABLET BY MOUTH TWICE DAILY DIRECTED FOR 90 DAYS 02/27 completed Not Available Not Available Not Available calcium 600 mg (as carbonate)- vitamin D3 10 mcg (400 unit) tablet Take 1 tablet twice a day by oral route as directed for 90 days. active Not Available Not Available No t Available Farxiga 10 mg tablet Take 1 tablet every day by oral route as directed for 90 days. 2024 active Not Available Not Available Not Avai lable Jardiance 25 mg tablet Take 1 tablet every day by oral route as directed for 90 days. 2024 active Not Available Not Available Not Avai lable Saxenda 3 mg/0.5 mL (18 mg/3 mL) subcutaneou s pen injector Inject 0.6 mg every day by subcutane ous route as directed for 30 days. active Not Available Not Available No t Available Wegovy 0.25 mg/0.5 mL subcutaneou s pen injector Use 0.25mg once a week SubQ as directed. If Saxenda is not covered, ok for Wegovy. active Not Available Not Available No t Available Plenity (Welcome Kit) 0.75 gram capsule Take 3 capsules twice a day by oral route before meals for 30 days. 01/25 completed Not Available Not Available Not Available Zepbound 2.5 mg/0.5 mL subcutaneou s pen injector 12/24 completed Not Available Not Available Not Available Vitals Date Recorded Body height Body mass index (BMI) Body weight Body temperature Heart rate Respiratory rate Oxygen saturation Oxygen saturation in Arterial blood by Pulse oximetry Systolic blood pressure Diastolic blood pressure Provider Name and Address Organization Details Last Updated DateTime 4 170.18 cm 26 kg/m2 19582.6 9 g 97.3 [degF] 72 /min 19 /min 96 % 96 % 148 mm[Hg] 80 mm[Hg] VEL [facility] 4 14:25:04 Date Recorded Body height Body mass index (BMI) Body weight Body temperature Heart rate Oxygen saturation Oxygen saturation in Arterial blood by Pulse oximetry Systolic blood pressure Diastolic blood pressure Provider Name and Address Organization Details Last Updated DateTime 4 170.18 cm 25.9 kg/m2 15184.4 6 g 97.7 [degF] 84 /min 96 % 96 % 136 mm[Hg] 74 mm[Hg] Deb Paulson RN [facility] [employer] [facility] 4 14:22:34 Date Recorded Body height Body mass index (BMI) Body weight Body temperature Heart rate Oxygen saturation Oxygen saturation in Arterial blood by Pulse oximetry Systolic blood pressure Diastolic blood pressure Provider Name and Address Organization Details Last Updated DateTime 4 170.18 cm 25.4 kg/m2 03687.7 1 g 97.2 [degF] 68 /min 96 % 96 % 136 mm[Hg] 72 mm[Hg] Floresita Jolly RN [facility] [employer] [facility] 4 09:04:14 Date Recorded Body height Body mass index (BMI) Body weight Body temperature Oxygen saturation Oxygen saturation in Arterial blood by Pulse oximetry Heart rate Systolic blood pressure Diastolic blood pressure Provider Name and Address Organization Details Last Updated DateTime 5 170.18 cm 25.9 kg/m2 02056.5 4 g 97 [degF] 98 % 98 % 96 /min 128 mm[Hg] 70 mm[Hg] Floresita Jolly RN [facility] [employer] [facility] 5 09:10:14 Date Recorded Body height Body mass index (BMI) Body weight Body temperature Oxygen saturation Oxygen saturation in Arterial blood by Pulse oximetry Heart rate Systolic blood pressure Diastolic blood pressure Provider Name and Address Organization Details Last Updated DateTime 5 170.18 cm 25.3 kg/m2 92043.7 7 g 97.4 [degF] 96 % 96 % 62 /min 124 mm[Hg] 78 mm[Hg] Floresita Jolly RN [facility] [employer] [facility] 5 09:05:55 Social History Question Answer Notes LastModified by Organizat ion Details LastModified Time Tobacco Smoking Status Never Smoker Isabella sommers [facility] [employer] [facility] 01/11/2023 11:16:41 Do You Have An Advance Directive? Yes [id number] Information not available 08/10/2022 Do You Wear A Helmet When Biking? No Information not available 01/11/2023 Are You Blind Or Do You Have Difficulty Seeing? No Information not available 01/11/2023 What Is Your Level Of Caffeine Consumption? Moderate Information not available 12/28/2022 In The 14 Days Before Symptom Onset, Have You Had Close Contact With A Laboratory-confir med COVID-19 While That Case Was Ill? No Information not available 01/11/2023 In The 14 Days Before Symptom Onset, Have You Had Close Contact With A Person Who Is Under Investigation For COVID-19 While That Person Was Ill? No Information not available 01/11/2023 Are You Deaf Or Do You Have Serious Difficulty Hearing? No Information not available 01/11/2023 What Type Of Diet Are You Following? [id number] Information not available 08/10/2022 What Is The Highest Grade Or Level Of School You Have Completed Or The Highest Degree You Have Received? [id number] Information not available 01/11/2023 How Many Days Of Moderate To Strenuous Exercise, Like A Brisk Walk, Did You Do In The Last 7 Days? 3 Information not available 01/11/2023 On Those Days That You Engage In Moderate To Strenuous Exercise, How Many Minutes, On Average, Do You Exercise? 3 Information not available 01/11/2023 Have There Been Any Changes To Your Family Or Social Situation? No Information no t available 01/11/2023 What Is The Fluoride Status Of Your Home? Unknown Information not available 01/11/2023 Are There Any Guns Present In Your Home? No Information not available 01/11/2023 Do You Use Insect Repellent Routinely? Yes Information not available 01/11/2023 Where Do You Live? [facility] Information not available 01/11/2023 Advance Directive- Providers Has Reviewed Directive And Consents To Follow Them (insert Provider Name With Any Objectives In Notes Field) No Information not available 02/26/2024 Presence Of Domestic Violence No Information no t available 02/26/2024 Guns Present In The Home? No Information not available 02/26/2024 Are You Able To Care For Yourself? Yes Information not available 02/26/2024 Are You Blind Or Do Yo Have Difficulty Seeing? No Information not available 02/26/2024 Are You Deaf Or Do You Have Serious Difficulty Hearing? No Information not available 02/26/2024 General Stress Level? Low Information not available 02/26/2024 Live Alone Of With Others? With Others Information not available 02/26/2024 Do You Have A Medical Power Of Goodwill Representative? Yes Information not available 01/11/2023 What Was The Date Of Your Most Recent Tobacco Screening? 04/25/2022 Information not available 01/11/2023 How Many Children Do You Have? 2 Information not available 02/26/2024 Do You Have Any Pets? No Information not available 01/11/2023 What Is Your Relationship Status? [id number] Information not available 08/10/2022 Do You Use Your Seat Belt Or Car Seat Routinely? Yes Information not available 01/11/2023 Do You Have Smoke And Carbon Monoxide Detectors In Your Home? Yes Information not available 01/11/2023 Are You Passively Exposed To Smoke? No Information no t available 01/11/2023 Are There Any Smokers In Your House? No Information not available 01/11/2023 Do You Participate In Social Media? No Information not available 01/11/2023 Do You Use Sunscreen Routinely? Yes Information not available 01/11/2023 Has Tobacco Cessation Counseling Been Provided? No Information not available 01/11/2023 Have You Recently Traveled Abroad? No Information not available 01/11/2023 Do You Have Difficulty Walking Or Climbing Stairs? No Information not available 01/11/2023 Are You Currently In School? No Information not available 01/11/2023 Do You Have Any Dietary Restrictions? No Information not available 01/11/2023 Sex: Female Functional Status Question Answer Note LastModified by Organizat ion Details LastModified Time Do you use any illicit or recreational drugs? No Information not available 01/11/2023 Do you or have you ever used any other forms of tobacco or nicotine? No Information not available 01/11/2023 What is your level of alcohol consumption? None [id number] Information not available 08/10/2022 Are you currently employed? No Information not available 02/26/2024 Do you have transportation difficulties? No Information not available 01/11/2023 Are you able to walk? [employer] Information not available 01/11/2023 Do you have difficulty doing errands alone? No Information not available 01/11/2023 Are you able to care for yourself? Yes Information n ot available 01/11/2023 Do you have difficulty dressing or bathing? No Information not available 01/11/2023 What is your exercise level? Moderate [id number] Information not available 08/10/2022 Mental Status Question Answer Note LastModified by Organizat ion Details LastModified Time Do you feel stressed (tense, restless, nervous, or anxious, or unable to sleep at night)? [id number] Information not available 01/11/2023 Do you have difficulty concentrating, remembering or making decisions? No Information no t available 01/11/2023 Family History Relationship Description Onset Age of this Age Resolved Age Notes LastModified by Organization Details LastModified Time Unspecified Relation Family history of malignant neoplasm [email or web address] Not available 07/25 08:53:48 Unspecified Relation Heart disease [id number] Not available 08/10/2022 02:30:45 Medical History Condition Response BLINDNESS N RHEUMATIC FEVER N KIDNEY STONES N BLADDER PROBLEMS N MRSA N OTHER # 1 N POLIO N LUNG DISEASE/DISORDER N HISTORY OF DRUG ABUSE N COPD N RADIATION / CHEMOTHERAPY N Other # 2 N BLOOD DISEASES N SURGERY N EAR OR HEARING PROBLEMS N MUMPS N SHINGLES N BOWEL PROBLEMS N FEMALE PROBLEMS / INFECTIONS N DEPRESSION (INCLUDING POST ) N STROKE/TIA N THYROID DISEASE N ULCERS N BENIGN PROSTATIC HYPERPLASIA N MEASLES N CERVICALGIA N TB SKIN TEST N HYPOTENSION N MYOCARDIAL INFARCTION N OBESITY N PARAPELGIA N GERD/NAUSEA N ANEURYSM N URINARY/BLADDER/KIDNEY PROBLEMS N CORONARY ARTERY DISEASE (CAD) N MENIERE'S DISEASE N ADDICTION CONCERNS N ENDOMETRIOSIS N USE OF BLOOD THINNERS N SKIN PROBLEMS N EMPHYSEMA N GASTROINTESTINAL DISORDER N MUSCLE,JOINT OR BONE PROBLEMS N GASTROINTESTINAL BLEEDING N BLOOD CLOTS N ASTHMA N CATARACTS N ERECTILE DYSFUNCTION N GI PROBLEMS N CHF N Low Testosterone N NEUROPATHY N INFERTILITY N AIDS/HIV N FRACTURES N CHEMOTHERAPY / RADIATION N VISION/EYE PROBLEMS N LIVER DISEASE N MALE HYPOGONADISM N HYPERTENSION N TOURETTE'S N ANXIETY DISORDER N BLOOD TRANSFUSION N ANEMIA/BLOOD DISORDER N CHRONIC EAR INFECTIONS N BRONCHITIS N TUBERCULOSIS N GLAUCOMA N FOOT PROBLEM N DIVERTICULITIS N SLEEP APNEA N CHICKENPOX N ALLERGIES/HAYFEVER N INFECTIOUS DISEASE N PROSTATE N HEART ARRHYTHMIA N INSOMNIA N HIGH CHOLESTEROL / HYPERLIPIDEMIA N EYE PROBLEMS N HYPERTHYROIDISM N EATING DISORDER N EDEMA N CHRONIC PAIN SYNDROME N CAROTID BLOCKAGE N CONSTIPATION N BACK / NECK PROBLEMS N HAVE YOU BEEN HOSPITALIZED OR SEEN IN [facility] IN THE PAST YEAR ? N ATHEROSCLEROSIS N BREAST PROBLEMS N DIALYSIS N ECZEMA N FIBROMYALGIA N OSTEOPOROSIS N ARTHRITIS N NO SIGNIFICANT PAST MEDICAL HISTORY N APPENDICITIS N DIABETES, TYPE N BAD TEETH N HEARTBURN / REFLUX N ADD/ADHD N AUTISM SPECTRUM DISORDER (ASD) N HEPATITIS / LIVER DISEASE N PULMONARY DISEASE N GOUT N SLEEP DISORDER N ALZHEIMER'S DISEASE N PAIN N HERPES N DEMENTIA N HEADACHES/MIGRAINES N SEIZURES/EPILEPSY N VASCULAR DISEASE N PACEMAKER N DIZZINESS N HEART DISEASE/HEART PROBLEMS N KIDNEY DISEASE N DEVELOPMENTAL OR BEHAVIORAL DISORDERS N MULTIPLE SCLEROSIS N SCARLET FEVER N MENTAL DISORDER/ILLNESS N CARDIAC ARRHYTHMIA N CANCER: SPECIFY N PNEUMONIA N ATRIAL FIBRILLATION N Gall Stones N PULMONARY EMBOLISM N AUTOIMMUNE DISEASE N Gynecological History Statement/Question Response Date of Last Mammogram 06/12/2021 Current Control Method Menopause Age at Menarche 15 Date of Last Colonoscopy Most Recent Bone Density Obstetrics History GPAL:G 2 P 2 0 0 2 Type Value Multiple Births 2 Full Term 2 Induced 0 Spontaneous 0 Premature 0 Living 2 Ectopics 0 Total 2 Immunizations Vaccine Type Date Status Note Provider Nam e and Address Organization Details Recorded Time COVID-19, mRNA, LNP-S, PF, 30 mcg/0.3 mL dose 1 completed Not Available [facility] 08/10/2022 02:36:42 COVID-19 PS Non-US Vaccine (EpiVacCorona) 1 completed Not Available [facility] 08/10/2022 02:36:42 COVID-19 PS Non-US Vaccine (EpiVacCorona) 1 completed Not Available [facility] 08/10/2022 02:36:42 Influenza, high-dose, quadrivalent, PF 1 completed Not Available [facility] 08/10/2022 02:36:42 Influenza, high-dose, quadrivalent, PF 2 completed Not Available [facility] 08/10/2022 02:36:42 pneumococcal polysaccharide PPV23 1 completed Not Available [facility] 08/10/2022 02:36:42 Tdap 1 completed Not Available [facility] 08/10/2022 02:36:42 Influenza, high-dose, quadrivalent, PF 3 completed Hardeep sommers, [place] [facility] 03/02/2023 09:03:44 Influenza, high-dose, trivalent, PF 4 completed Mike Valdez MD [address] [place] [address], [address], [facility] [employer] [facility] [employer] [facility] 03/27/2024 09:30:04 Past Encounters Encounter ID Performer Location Encounter Start Date Encounter Closed Date Diagnosis/Indication Diagnosis SNOMED-CT Code Diagnosis ICD10 Code Diagnosis Note [id number] Mike Valdez MD [address] [address] 08/25/2020 00:00:00 08/25/2020 09:29:35 [id number] Mike Valdez MD [address] [address] 10/19/2020 00:00:00 10/19/2020 10:16:48 [id number] Mike Valdez MD [facility] [address] [place] [address] 12/15/2020 00:00:00 12/15/2020 10:56:01 [id number] Mike Valdez MD [facility] [address] [place] [address] 03/15/2021 00:00:00 03/15/2021 10:02:44 [id number] Mike Valdez MD [facility] [address] [place] [address] 08/12/2021 00:00:00 08/12/2021 09:37:43 [id number] Mike Valdez MD [facility] [address] [place] [address] 08/26/2021 00:00:00 08/26/2021 10:00:11 [id number] Mike Valdez MD [facility] [address] [place] [address] 09/27/2021 00:00:00 09/27/2021 10:52:03 [id number] Mike Valdez MD [facility] [address] [place] [address] 10/27/2021 00:00:00 10/27/2021 10:07:04 [id number] Mike Valdez MD [facility] [address] [place] [address] 12/01/2021 00:00:00 12/01/2021 09:56:22 [id number] Mike Valdez MD [facility] [address] [place] [address] 02/28/2022 00:00:00 02/28/2022 10:02:43 [id number] Mike Valdez MD [facility] [address] [place] [address] 04/26/2022 00:00:00 04/26/2022 15:16:18 [id number] Mike Valdez MD [address] [address] 12/28/2022 11:23:49 12/28/2022 12:21:51 Pre-surgery evaluation 466063948 Z01.818 Bilateral cataracts 9572 2003 H26.9 Chronic back pain 630489 002 G89.29 Chronic neck pain 323986 2494 107 M54.2 Cervical spondylosis 387 054835 M47.812 Degenerati on of lumbar intervertebral disc 10146820 M51.36 Gouty arthropathy 677176 008 M10.09 Hypertensive disorder 38 331716 I10 Hyperlipidemia 89055480 E78.5 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 Obesity 739313574 E66.9 Gastroesop hageal reflux disease without esophagitis 605474632 K21.9 [id number] Mike Valdez MD [address] [address] 01/11/2023 11:15:46 01/11/2023 11:44:27 Chronic back pain 034787120 G89.29 Chronic neck pain 324661 6796 107 M54.2 Cervical spondylosis 387 301826 M47.812 Degenerati on of lumbar intervertebral disc 64764674 M51.36 Gouty arthropathy 163675 008 M10.09 Hypertensive disorder 38 322207 I10 Hyperlipidemia 04071274 E78.5 Polyarthropathy 13624790 M13.0 Obesity 367556177 E66.9 Gastroesop hageal reflux disease without esophagitis 543209079 K21.9 Chronic low back pain 27 4018886 M54.50 Hypomagnesemia 157299360 E83.42 Bradycardia 72234797 R00 .1 Chronic [id number] Mike Valdez MD [address] [address] 01/25/2023 12:19:02 01/25/2023 12:52:45 Hypertensive disorder 85054770 I10 Chronic back pain 341767 002 G89.29 Chronic neck pain 270117 7146 107 M54.2 Cervical spondylosis 387 971647 M47.812 Degenerati on of lumbar intervertebral disc 35867525 M51.36 Gouty arthropathy 227509 008 M10.09 Hyperlipidemia 97614149 E78.5 Polyarthropathy 18873697 M13.0 Obesity 441396226 E66.9 Gastroesop hageal reflux disease without esophagitis 989525490 K21.9 Chronic low back pain 27 7439979 M54.50 Hypomagnesemia 854888085 E83.42 resolved Bradycardia 15683822 R00 .1 Chronic Microscopic hematuria 19 0639678 R31.29 Gout 42515918 M10.9 [id number] Mike Valdez MD [address] [address] 01/30/2023 11:39:38 01/30/2023 14:01:10 [id number] Mike Valdez MD [address] [address] 02/27/2023 11:05:42 02/27/2023 12:18:51 Hypertensive disorder 54582029 I10 Polyarthropathy 23559652 M13.0 Obesity 582914295 E66.9 Microscopic hematuria 19 0929817 R31.29 resolved Administra tion of influenza vaccine 25791016 Z23 Hyperlipidemia 44238048 E78.5 [id number] Mike Valdez MD [address] [address] 03/17/2023 14:06:58 03/17/2023 15:28:47 [id number] Mike Valdez MD [address] [address] 03/30/2023 09:38:47 03/30/2023 10:00:47 Chronic back pain 188209222 G89.29 Chronic neck pain 449669 2128 107 M54.2 Obesity 513281817 E66.9 [id number] Mike Valdez MD [address] [address] 08/09/2023 15:57:07 08/09/2023 16:18:27 Chronic back pain 949333087 G89.29 Chronic neck pain 633747 8868 107 M54.2 Obesity 165798744 E66.9 Screening mammography 24 869370 Z12.31 Gout 40130484 M10.9 Gastroesop hageal reflux disease without esophagitis 510277611 K21.9 Hyperlipidemia 46337339 E78.5 [id number] Mike Valdez MD [address] [address] 10/19/2023 10:45:05 10/19/2023 11:06:35 Adult health examination 866253797 Z00.00 Screening for disorder 386525087 Z13.9 Gout 25772785 M10.9 Chronic neck pain 239850 9992 107 M54.2 Chronic back pain 390089 002 G89.29 Obesity 146031404 E66.9 Gastroesop hageal reflux disease without esophagitis 902487579 K21.9 Hyperlipidemia 46497877 E78.5 Screening for osteoporosis 605846988 Z13.820 Screening for malignant neoplasm of colon 853485960 Z12.11 [id number] Mike Valdez MD [address] [address] 12/28/2023 11:52:50 12/28/2023 12:17:22 Gout 45722408 M10.9 Chronic neck pain 387550 2071 107 M54.2 Chronic back pain 562178 002 G89.29 Obesity 331029876 E66.9 Gastroesop hageal reflux disease without esophagitis 773818594 K21.9 Hyperlipidemia 02812372 E78.5 Loss of hair 581512797 L 65.9 [id number] Mike Valdez MD [address] [address] 02/26/2024 08:59:20 02/26/2024 09:42:14 Loss of hair 745570598 L65.9 Gout 44961742 M10.9 Chronic neck pain 159503 2764 107 M54.2 Chronic back pain 959706 002 G89.29 Obesity 527429712 E66.9 Gastroesop hageal reflux disease without esophagitis 556000250 K21.9 Hyperlipidemia 18017280 E78.5 [id number] Mike Valdez MD [place] [address] 1 03/27/2024 08:57:26 03/27/2024 09:32:12 Hyperlipidemia 76729052 E78.5 Gout 75938531 M10.9 Loss of hair 748027953 L 65.9 Gastroesop hageal reflux disease without esophagitis 391397202 K21.9 Chronic neck pain 045691 8252 107 M54.2 Chronic back pain 389843 002 G89.29 Obesity 802023939 E66.9 Microscopic hematuria 19 7767462 R31.29 Chronic ki dney disease stage 3 226911786 N18.30 Administra tion of influenza vaccine 35294619 Z23 [id number] Mike Valdez MD [place] [address] 1 04/08/2024 14:19:44 04/08/2024 14:53:42 Seen in emergency clinic 989964217 Z76.89 Recent UC records reviewed with pt. Laceration of right index finger 7639393869 5793133 S61.210D 4 stitches [id number] Mike Valdez MD [place] [address] 1 04/17/2024 14:11:44 04/17/2024 14:35:10 Seen in emergency clinic 164887684 Z76.89 Recent UC records reviewed with pt. Laceration of right index finger 3579042068 3470874 S61.210D 3 stitches Removal of suture 241148 01 Z48.02 [id number] Mike Valdez MD [place] [address] 1 05/28/2024 08:47:18 05/28/2024 09:17:10 Microscopic hematuria 125292616 R31.29 resolved Chronic ki dney disease stage 3 040776970 N18.30 Hyperlipidemia 90063544 E78.5 Gout 45368454 M10.9 Loss of hair 362974776 L 65.9 Gastroesop hageal reflux disease without esophagitis 447823444 K21.9 Chronic neck pain 689026 1862 107 M54.2 Chronic back pain 665263 002 G89.29 Obesity 003147429 E66.9 [id number] Mike Valdez MD [place] [address] 1 07/25/2024 08:52:53 07/25/2024 09:24:20 Microscopic hematuria 872461677 R31.29 resolved Chronic ki dney disease stage 3 342721795 N18.30 Hyperlipidemia 06303141 E78.5 Gout 38142053 M10.9 Loss of hair 844959956 L 65.9 Gastroesop hageal reflux disease without esophagitis 590340278 K21.9 Chronic neck pain 822836 6798 107 M54.2 Chronic back pain 464997 002 G89.29 Obesity 130116133 E66.9 Motion sickness 37600579 T75.3XXD [id number] Mike Valdez MD [place] [address] 1 09/30/2024 08:52:14 09/30/2024 09:52:06 Hyperlipidemia 51128704 E78.5 Gout 35589665 M10.9 Microscopic hematuria 19 3814309 R31.29 resolved Chronic ki dney disease stage 3 895781241 N18.30 Loss of hair 291936241 L 65.9 Gastroesop hageal reflux disease without esophagitis 922095654 K21.9 Chronic neck pain 285160 7399 107 M54.2 Chronic back pain 123595 002 G89.29 Screening mammography 24 783127 Z12.31 Overweight 238209075 E66 .3 Health Concerns Section Related Observation LastModified by Organization Detai ls LastModified Time None Recorded Concern Status LastModified by Organization Details LastModified Time None Recorded Advance Directives Directive Y: Payers Encounter Date Sequence Insurance Name Policy Number Policy Williamson Covered Member ID Williamson Member ID Guarantor Name 04/08/2024 1 [facility] (MEDICARE REPLACEMENT/A DVANTAGE - HMO) [id number] Isabella Parsons [id number] Isabella Parsons 04/17/2024 1 [facility] (MEDICARE REPLACEMENT/A DVANTAGE - HMO) [id number] Isabella Merchant Issa [id number] Isabella Merchant Issa 05/28/2024 1 [facility] (MEDICARE REPLACEMENT/A DVANTAGE - HMO) [id number] Isabella Merchant Issa [id number] Isabella Merchant Parsons 07/25/2024 1 [facility] (MEDICARE REPLACEMENT/A DVANTAGE - HMO) [id number] Isabella Merchant Issa [id number] Isabella Merchant Issa 09/30/2024 1 [facility] (MEDICARE REPLACEMENT/A DVANTAGE - HMO) [id number] Isabella Merchant Issa [id number] Isabella Parsons Notes Date Note Type Note Provider Name and Address Organization Details Recorded Time 04/08/2024 text/html fuv: Pt got a cut over her Rt index finger PIP joint 1 week ago. So she went to and got 4 stitches there. Pt was not given any new Rx/Tetanus shot there. Overall, she is doing much better now. No pain/discharge/fev er/chills. 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 Mike Valdez MD [address], [place], [address], [place] 04/08/2024 14:53:19 04/17/2024 text/html Pt is here for stitches removal from her Rt index finger. Doing well, no discharge/pain over the site. Pt got a cut over her Rt index finger PIP joint 1 week ago. So she went to and got 4 stitches there. Mike Valdez MD [address], [address], [place], [address], [place] 04/17/2024 14:34:11 05/28/2024 text/html Pt is here for f /u on her labs and chronic conditions. Doing overall well. Denies any problem with meds. Denies any new concern. Denies any problem with Phentermine. So far, 36 lbs wt loss on it. Pt is checking her BP at home and its good. Pt was started on Saxenda and Wegovy in the past; but both of them were too costly for pt, so she did not take them. Pt is f/u with Pain clinic for her chronic back pain and got 2 injections with them. Doing overall good with it.C/o chronic neck and low back area pain for last few months, but for last few days; its hurting her more. Pt denies any recent fall/injury. Pt did some yard work couple days ago and her symptoms are more after that.Pt says she is doing better with her GERD. Pt had EGD done in the past too.Pt is f/u with Cardio at [place] every 4-6 months and doing well with it. Pt is getting labs with them every few months, so she doesn't want to do any labs here. Mkie Valdez MD [address], [address], [place], [address], [employer] 05/28/2024 09:32:20 07/25/2024 text/html Pt is here for f /u on her meds and chronic conditions. Doing overall well. Denies any problem with meds. Denies any new concern. Denies any problem with Phentermine. So far, 33 lbs wt loss on it. Pt is checking her BP at home and its good. Pt was started on Saxenda and Wegovy in the past; but both of them were too costly for pt, so she did not take them. Pt is f/u with Pain clinic for her chronic back pain and got 2 injections with them. Doing overall good with it.C/o chronic neck and low back area pain for last few months, but for last few days; its hurting her more. Pt denies any recent fall/injury. Pt did some yard work couple days ago and her symptoms are more after that.Pt says she is doing better with her GERD. Pt had EGD done in the past too.Pt is f/u with Cardio at [place] every 4-6 months and doing well with it. Pt is getting labs with them every few months, so she doesn't want to do any labs here. Mike Valdez MD [address], [place], [address], [employer] 07/25/2024 09:18:46 09/30/2024 text/html Pt is here for f /u on her lab, meds and chronic conditions. Doing overall well. Denies any problem with meds. Denies any new concern. Pt has not taken Farxiga due to cost issues. Pt has lost about 33 lbs wt with Phentermine and she did well with it. Pt is checking her BP at home and its good. Pt was started on Saxenda and Wegovy in the past; but both of them were too costly for pt, so she did not take them. Pt is f/u with Pain clinic for her chronic back pain and got 2 injections with them. Doing overall good with it.C/o chronic neck and low back area pain for last few months, but for last few days; its hurting her more. Pt denies any recent fall/injury. Pt did some yard work couple days ago and her symptoms are more after that.Pt says she is doing better with her GERD. Pt had EGD done in the past too.Pt is f/u with Cardio at [place] every 4-6 months and doing well with it. Pt is getting labs with them every few months, so she doesn't want to do any labs here. Mike Valdez MD [address] [facility] [address], [place], [address], [facility] [email or web address] 09/30/2024 09:19:05 OBGyn Episode No OBEpisode recorded.
== END 2024-10-31 13:58 | disposition home or self-care (01) ==
LOC: ANHIMG 13:58
PROVIDERS: PCP Family Medicine; Visit Provider Family Medicine
DX: Z12.31 Encounter for screening mammogram for malignant neoplasm of breast (principal)
CPT/HCPCS: 77063; 77067

== ENCOUNTER 2025-02-06 14:34 | Outpatient (CLI) | payer MEDICARE, SELFPAY ==
--- NOTE | ~2025-02-06 | XR_ITS ---
XR thoracic spine 3V 02/06/2025 14:54 Indication: Thoracic spine pain Procedure: 3 views thoracic spine Comparison: No prior studies for comparison. Findings: There is mild multilevel thoracic spondylosis. Pedicles intact. No acute fracture or traumatic malalignment. There is lower cervical spondylosis. No paraspinal soft tissue abnormality. Impression: 1: Mild thoracic spondylosis. Reviewed, dictated and finalized at location O. Impression: 1: Mild thoracic spondylosis.
== END 2025-02-06 14:35 | disposition home or self-care (01) ==
LOC: MICIMG 14:37
PROVIDERS: PCP Family Medicine; Visit Provider Family Medicine
DX: M47.814 Spondylosis without myelopathy or radiculopathy, thoracic region (principal)
CPT/HCPCS: 72072